=== PATIENT | female | born 1980 | race Caucasian/White ===

== ENCOUNTER 2024-06-25 16:57 | Emergency (ER) | payer OTHER, SELFPAY ==
--- NOTE | 2024-06-25 16:45 | DI.RAD_ITS ---
Exam(s) XR CHEST 2V PA LATERAL EXAM: XR CHEST 2V PA LATERAL CLINICAL HISTORY: cxr TECHNIQUE: 2D digital imaging was performed. Two views. COMPARISON: No exams were available for comparison FINDINGS: Exam mildly limited by poor pulmonary inflation on both views. HEART: Normal size. Aorta: Not dilated. PULMONARY VASCULATURE: Normal. MEDIASTINUM: Unremarkable. LUNGS: Clear. PLEURAL SPACE: No pleural effusion or pneumothorax. BONE:Unremarkable for age. SOFT TISSUES: Unremarkable. IMPRESSION: No acute abnormality. DATA REPOSITORY: RADIATION DOSE DELIVERED:
[2024-06-25 16:53] VITALS: BP 140/98; PULSE 86; RESP 20; TEMP 35.8; O2SAT 100
[2024-06-25] MEDS: Ibuprofen 600 MG TAB PO (17:13)
[2024-06-25] MEDS: Acetaminophen 500 MG TAB 1000 MG PO (17:13)
[2024-06-25] MEDS: Methocarbamol 500 MG TAB 1000 MG PO (17:13)
[2024-06-25 17:48] VITALS: BP 145/102; PULSE 96; TEMP 36.1; O2SAT 99
[2024-06-25 17:59] VITALS: BP 145/102; PULSE 96; RESP 16; TEMP 36.1; O2SAT 99
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
== END 2024-06-25 17:59 | disposition home or self-care (01) ==
LOC: ER 17:50
PROVIDERS: Emergency Provider Emergency Medicine
DX: S20.214A Contusion of middle front wall of thorax, initial encounter (principal); V43.52XA Car driver injured in collision with other type car in traffic accident, initial encounter
CPT/HCPCS: 99283; 71046